=== PATIENT | male | born 1985 | race Caucasian/White ===

== ENCOUNTER 2020-02-22 00:45 | Emergency (ER) | payer SELFPAY ==
[2020-02-22] MEDS ORDERED: CHLORPROMAZINE HCL INJ 25 MG/1 ML AMPULE IM ONE (01:05)
--- NOTE | 2020-02-22 01:10 | ER Document Report ---
ED General - General TRAVEL OUTSIDE OF THE [place] IN LAST 30 DAYS: No <TIA AGUILAR - Last Filed: 02/22/20 02:22> <KIMBERLY NEVES - Last Filed: 02/22/20 10:49> <CELSOELLIOTT A - Last Filed: 02/22/20 12:52> - General Chief Complaint: Psych Problem Stated Complaint: ED IVC Time Seen by Provider: 02/22/20 00:56 Primary Care Provider: [facility] [Outside] - Follow up as needed - HPI Notes: Patient is a 35-year-old male who presents to the emergency department for evaluation. He admits to using methamphetamines. He states that he has similar over the head and he believes that he killed him. He also reported to nursing that there were rumors being posted about him on the Internet. As a result of these things he states he is suicidal. He cannot really focus enough to tell me what his plan is. He becomes very agitated. He denies any pain. He is otherwise rambling on about using meth and how upset he is, will not really further answer any of my questions. (TIA AGUILAR) - Related Data Allergies/Adverse Reactions: No Known Allergies Allergy (Verified 07/04/14 02:36) Past Medical History - General Information source: Patient - Social History Smoking Status: Unknown if Ever Smoked Frequency of alcohol use: unk Drug Abuse: Methamphetamine Family History: CAD, DM, Hypertension, Malignancy Patient has homicidal ideation: No Psychiatric Medical History: Reports: Hx Schizophrenia - Immunizations Immunizations up to date: Yes Hx Diphtheria, Pertussis, Tetanus Vaccination: Yes <TIA AGUILAR - Last Filed: 02/22/20 02:22> Review of Systems - Review of Systems -: Yes ROS unobtainable due to patient's medical condition <TIA AGUILAR - Last Filed: 02/22/20 02:22> Physical Exam <TIA AGUILAR - Last Filed: 02/22/20 02:22> - Vital signs Vitals: Pulse BP Pulse Ox 95 148/80 H 77 L 02/22/20 00:53 02/22/20 00:53 02/22/20 00:53 - Notes Notes: This is an agitated 35-year-old male who appears his stated age, in a moderate amount of distress. He is yelling intermittently. He appears paranoid, agitated, cannot maintain eye contact, and his moods are very labile. His findings are all consistent with methamphetamine intoxication. Vital signs reviewed, please refer to chart. Head is normocephalic, atraumatic. Pupils equal round, reactive to light. Neck is supple without meningismus. Heart is regular rate and rhythm. Lungs are clear to auscultation bilaterally. Abdomen is soft, nontender, normoactive bowel sounds throughout. Extremities without cyanosis, clubbing. Posterior calves are nontender. Peripheral pulses are equal. Skin is warm and dry. Patient is awake, alert, only intermittently cooperative with examiner. He has no gross facial asymmetry. He moves all 4 extremities spontaneously. (TIA AGUILAR) Course - Laboratory Results Result Diagrams: 02/22/20 01:52 02/22/20 01:52 - Radiology Results Critical Radiology Results Reviewed: No Critical Results <TIA AGUILAR - Last Filed: 02/22/20 02:22> - Laboratory Results Result Diagrams: 02/22/20 01:52 02/22/20 09:49 <KIMBERLY NEVES - Last Filed: 02/22/20 10:49> - Laboratory Results Result Diagrams: 02/22/20 01:52 02/22/20 09:49 Critical Laboratory Results Reviewed: No Critical Results - Radiology Results Critical Radiology Results Reviewed: No Critical Results <ELLIOTT HOUSTON - Last Filed: 02/22/20 12:52> - Re-evaluation Re-evalutation: 02/22/20 01:09 Patient presents emergency department for evaluation. He admitted openly to abusing methamphetamines as well as being suicidal. Based on this information I did fill out IVC paperwork. Laboratory investigations are ordered. Because of his level of agitation I did order Thorazine. The patient is currently stable, we will continue to monitor. 02/22/20 02:01 Patient is finally stable enough for blood draw and EKG. His EKG showed a sinus tachycardia with a rate of 107 and a prolonged QT interval. There are no old studies available for comparison. It is possible that the Thorazine is responsible for his prolonged QT, but will place him on telemetry. Magnesium is added to his regular electrolytes. I do not have any reason to strongly suspect any other significant abnormalities, and projected that he will likely be medically cleared for psychosocial evaluation in the morning. Care of this patient will be turned over to another provider and they will follow up in regards to any electrolyte replacement or further treatment that needs performed. Repeat EKG will be performed to determine whether or not this prolonged QT interval resolves after the administration of the antipsychotic has time to wear off. 02/22/20 02:23 Patient found to be markedly hypokalemic. Oral potassium replacement ordered now and as well as in several hours. I am still awaiting magnesium. I have placed an order for repeat potassium tomorrow morning. Report will also be given that an EKG should be repeated as well. Assuming appropriate replacement of the potassium on recheck and unremarkable magnesium, improvement in QT interval on EKG, patient will be medically cleared. (TIA AGUILAR) - Vital Signs Vital signs: Temp Pulse Resp BP Pulse Ox 97.7 F 111 H 16 131/83 H 94 02/22/20 09:56 02/22/20 09:56 02/22/20 09:56 02/22/20 09:56 02/22/20 09:56 - Laboratory Results Laboratory Results Interpreted: 02/22/20 02/22/20 02/22/20 01:52 01:52 09:49 MCHC 36.1 H Sodium 136.5 L 135.9 L Potassium 2.8 L* Glucose 121 H Total Bilirubin 1.6 H Total Protein 8.3 H Salicylates < 1.0 L Acetaminophen < 10 L - EKG Interpretation by Me Additional EKG results interpreted by me: 02/22/20 02:02 Sinus tachycardia with a rate of 107 bpm. Right axis deviation. IVCD. No acute ST changes concerning for ischemia or infarction. Prolonged QT interval. No studies available for comparison. (TIA AGUILAR) Discharge <TIA AGUILAR - Last Filed: 02/22/20 02:22> <KIMBERLY NEVES - Last Filed: 02/22/20 10:49> <ELLIOTT HOUSTON - Last Filed: 02/22/20 12:52> - Discharge Clinical Impression: Methamphetamine abuse, Suicidal ideation, Hypokalemia Condition: Stable Disposition: HOME, SELF-CARE Additional Instructions: You have been evaluated both medical and behavioral teams have been deemed appropriate for discharge. You are encouraged to refrain from using methamphetamines as this causes your symptoms of hallucinations, delusions and paranoia. You are encouraged to follow-up with substance use treatment. [facility] can assist you with voluntary detox. You have been provided a local resource list of area providers including [facility], other detox facilities and mobile crisis contact information. DEPRESSION: Your evaluation reveals that you have mental depression. While symptoms may be vague, they often include disturbance of sleep, fatigue, loss of appetite, and general loss of interest in life. While depression may be a side effect of drugs, or a reaction to a major change in your life, many cases have no known cause. If depression is acute, and related to a major loss in your life, you can expect it to clear completely with time. If you have been depressed a long time, are prone to repeated bouts of depression or low mood, or have been thinking of suicide, get help. Depression can be treated with anti-depressant medication and counselling. Long-term depression will often take a few weeks to clear, even with appropriate medication. Follow-up care is important. SUICIDAL IDEATION: Suicidal ideation is a common medical term for thoughts about suicide, which may be as detailed as a formulated plan, without the suicidal act itself. Although most people who undergo suicidal ideation do not commit suicide, some go on to make suicide attempts. The range of suicidal ideation varies greatly from fleeting to detailed planning, role playing, and unsuccessful attempts. While thoughts about suicide are common, most people do not carry out serious actions to commit suicide. Based upon your evaluation and discussion with you, we do not believe you are currently at risk to act upon your thoughts of suicide. You have agreed to return to the Emergency Department, at any time, if you feel inclined to act upon your suicidal thoughts. AMPHETAMINE / METHAMPHETAMINE ABUSE: Amphetamines are addicting stimulants. Amphetamines overstimulate the nervous system and give a false feeling of power and mastery. These drugs may be obtained as prescription pills for weight loss, narcolepsy, or attention-deficit disorder. More often they're bought as an illegal street drug, methamphetamine (crank, crystal, speed). Using amphetamines repeatedly can lead to serious medical problems including malnutrition, severe depression, and paranoia. It can take increasing amounts to feel good. Eventually, there will be a "burn out." When you go off amphetamines there is a period of depression that may last for weeks or even months. High doses of amphetamines can cause seizures, confusion, hallucinations, delusions, high blood pressure, muscle damage, heart damage, or sudden . Many times these deadly complications occur even with "normal" doses. Injection of amphetamines is risky for developing abscesses, endocarditis (heart infection), pneumonia, and AIDS. Withdrawal from amphetamines often causes anxiety, depression, and drug cravings. Some users become paranoid and psychotic. There may be cramps, nausea, and vomiting. Many treatment programs are available, but you must make the decision to quit. Medication can be prescribed to control the symptoms of amphetamine toxicity (beta blockers or benzodiazepines). Withdrawal symptoms may require tranquilizers. FOLLOW-UP CARE: If you have been referred to a physician for follow-up care, call the physicians office for an appointment as you were instructed or within the next two days. If you experience worsening or a significant change in your symptoms, notify the physician immediately or return to the Emergency Department at any time for re-evaluation. Referrals: [facility] [Outside] - Follow up as needed IVET HAMILTON MD [COMMUNITY BASED STAFF] - Follow up as needed
[2020-02-22 02:01] LABS: ABSOLUTE BASOPHILS # (AUTO) 0.1 10^3/uL (0.0-0.2); ABSOLUTE EOSINOPHILS # (AUTO) 0.3 10^3/uL (0.0-0.6); ABSOLUTE LYMPHOCYTES (AUTO) 2.3 10^3/uL (0.5-4.7); ABSOLUTE MONOCYTES (AUTO) 0.7 10^3/uL (0.1-1.4); ABSOLUTE NEUT (AUTO) 5.3 10^3/uL (1.7-8.2); BASOPHILS % (AUTO) 1.3 % (0-2); EOSINOPHILS % (AUTO) 2.9 % (0-6); HEMATOCRIT 42.8 % (37.9-51.0); HEMOGLOBIN 15.4 g/dL (13.5-17.0); LYMPHOCYTES % (AUTO) 26.6 % (13-45); MEAN CORPUSCULAR HEMOGLOBIN 31.2 pg (27.0-33.4); MEAN CORPUSCULAR HGB CONC 36.1 g/dL (32.0-36.0); MEAN CORPUSCULAR VOLUME 87 fl (80-97); PLATELET COUNT 183 10^3/uL (150-450); RED BLOOD COUNT 4.94 10^6/uL (4.35-5.55); RED CELL DISTRIBUTION WIDTH 13.1 % (11.5-14.0); SEGMENTED NEUTROPHILS % (AUTO) 61.2 % (42-78); TOTAL CELLS COUNTED % (AUTO) 100 %; WHITE BLOOD COUNT 8.7 10^3/uL (4.0-10.5)
[2020-02-22 02:14] LABS: ALBUMIN 4.8 g/dL (3.5-5.0); ALKALINE PHOSPHATASE 92 U/L (38-126); ANION GAP 15 (5-19); ASPARTATE AMINO TRANSFERASE 53 U/L (17-59); BILIRUBIN,DIRECT 0.3 mg/dL (0.0-0.4); BILIRUBIN,TOTAL 1.6 mg/dL (0.2-1.3); BLOOD UREA NITROGEN 18 mg/dL (7-20); CALCIUM 9.5 mg/dL (8.4-10.2); CARBON DIOXIDE 23 mmol/L (22-30); CHLORIDE 99 mmol/L (98-107); GLUCOSE 121 mg/dL (75-110); TOTAL PROTEIN 8.3 g/dL (6.3-8.2)
[2020-02-22 02:17] LABS: ACETAMINOPHEN < 10 ug/mL (10-30); ALCOHOL < 10 mg/dL (NONE DETECTED); SALICYLATE < 1.0 mg/dL (2.0-20.0)
[2020-02-22 02:19] LABS: POTASSIUM 2.8 mmol/L (3.6-5.0)
[2020-02-22] MEDS ORDERED: POTASSIUM CHLORIDE 10 MEQ TABLET.ER PO ONE ×2 (02:20→06:00)
[2020-02-22 10:33] LABS: ANION GAP 9 (5-19); BLOOD UREA NITROGEN 17 mg/dL (7-20); CALCIUM 9.2 mg/dL (8.4-10.2); CARBON DIOXIDE 24 mmol/L (22-30); CHLORIDE 103 mmol/L (98-107); GLUCOSE 91 mg/dL (75-110)
[2020-02-22 10:39] LABS: POTASSIUM 4.7 mmol/L (3.6-5.0)
--- NOTE | 2020-02-22 11:35 | EKG REPORT ---
SEVERITY:- ABNORMAL ECG - SINUS TACHYCARDIA IRBBB AND LPFB PROLONGED QT INTERVAL : Confirmed by: Georgiana Palomo MD 22-Feb-2020 11:35:30
--- NOTE | 2020-02-22 11:39 | PSYCHOLOGICAL NOTE ---
Psych Note - Psych Note Date seen by psych provider: 02/22/20 Time seen by psych provider: 10:25 Psych Note: Reason for Consult:Substance Intoxication with psychosis Consent Permissions: none provided Patient arrived to [facility] ED via EMS due to psychosis. Patient admits to methamphetamine use and reports that he is "schizophrenic when he smokes methamphetamine." Patient continue report that last night he was very overwhelmed and scared and wanted to . Patient denies having a plan or wanting to kill himself currently. Clinician was able to reassure patient he is not schizophrenic if symptoms only occur when using methamphetamines. Clinician provided psychoeducation on methamphetamine use/symptoms. Patient reports he would like assistance with detox. Patient is alert and orientated to person, place, time and circumstance. Mood is dysphoric with tearful affect. Patient denies thoughts of wanting to harm himself however reports significant fear last night and passive suicidal ideation (i.e. no plans means or intent). Patient denies homicidal ideation. Delusions are absent behaviors congruent with intact reality based presentation i.e. organized linear thought process. Eye contact is fair. Conversational speech is within normal rate, tone and prosody. Intellectual abilities appear to be within the average range. Insight, judgment, impulse control is fair. Clinical Presentation: Methamphetamine intoxication with psychosis Passive suicidal ideation ie no plans means or intent IVC Criteria per [place] GS 122C Dangerous to others Within the relevant past the individual No has inflicted or attempted to inflict or threatened to inflict serious bodily harm on another AND No that there is a reasonable probability that this conduct will be repeated as there is an absence of supervision or structure to prevent. OR No has acted in such a way as to create a substantial risk of serious bodily harm to another AND No that there is a reasonable probability that this conduct will be repeated as there is an absence of supervision or structure to prevent. OR No has engaged in extreme destruction of property AND NO that there is a reasonable probability that this conduct will be repeated as there is an absence of supervision or structure to prevent. Previous episodes of dangerousness to others, when applicable, may be considered when determining reasonable probability of future dangerous conduct. Clear, cogent, and convincing evidence that an individual has committed a homicide in the relevant past is prima facie evidence of dangerousness to others. Dangerous to self Within the relevant past the individual has done any of the following: acted in such a way as to show ALL of the following: No The individual would be unable without care, supervision, and the continued assistance of others not otherwise available, to exercise self- control, judgment, and discretion in the conduct of the individual's daily responsibilities and social relations or to satisfy the individual's need for nourishment, personal or medical care, snf, or self-protection and safety. AND No There is a reasonable probability of the individual suffering serious physical debilitation within the near future unless adequate treatment is given. A showing of behavior that is grossly irrational, of actions that the individual is unable to control, of behavior that is grossly inappropriate to the situation, or of other evidence of severely impaired insight and judgment shall create a prima facie inference that the individual is unable to care for himself or herself. Clinician notes patient arrived under the influence of methamphetamines. Patient is no longer intoxicated and is able to care for ADLs. OR yes has attempted suicide or threatened suicide AND No that there is a reasonable probability of suicide unless adequate treatment is given as there is an absence of supervision or structure to prevent suicide of patient who has made an attempt, serious gesture or threat. Patient reports thoughts of passive suicidal ideation (i.e. no plans means or intent) while under the influence of methamphetamine. Patient denies current thoughts of wanting to harm himself OR No has mutilated himself or herself or attempted to mutilate himself or herself AND No that there is a reasonable probability of serious self-mutilation unless adequate treatment is given as there is an absence of supervision or structure to prevent. NOTE: Previous episodes of dangerousness to self, when applicable, may be considered when determining reasonable probability of physical debilitation, suicide, or self-mutilation. Impression\\plan: Patient is Recommended for rescind of 24 hour petition for evaluation and is cleared from acute psychiatric services; paperwork is signed and placed in patient's chart. Patient reports methamphetamine use and would like assistance with detox. He denies current thoughts of wanting to harm himself however admits that while intoxicated he had passive suicidal ideation i.e. no plans means or intent. Patient requests assistance with detox. Behavior health team contacted [facility] they confirm they have a voluntary bed. Patient provided contact information to call for set up a bed reservation for voluntary detox. Patient is also provided a local resource list with mobile crisis contact information. Dr. Chapman was consulted to care management of this patient; attending physician in agreement with recommendations and disposition.
--- NOTE | 2020-02-22 12:51 | ER Document Report ---
Doctor's Note Notes: 02/22/20 12:45 Patient's vital signs and previous labs, diagnostic images reviewed. Reviewed mental health notes, nurse's notes and previous providers notes. VSS. Pt is in no distress at this time. Denies any SI or HI. Potassium was rechecked at 8 and is up to 4.8. Repeat EKG shows a heart rate of 109, no ST segment elevations, no STEMI. Patient states he "used quite a bit of meth yesterday". Patient is getting resources to go to an outpatient clinic patient is going to [facility] voluntarily for placement. General: A&Ox3. Answers questions appropriately. Heart: RRR Lungs: CTAB Psych: Flat affect A/P: Continue monitoring and rec's per . Normal diet plan: [facility] for treatment 02/22/20 12:51
[2020-02-22 13:35] VITALS: BP 139/81
--- NOTE | 2020-02-23 20:33 | EKG REPORT ---
SEVERITY:- BORDERLINE ECG - SINUS TACHYCARDIA BORDERLINE PROLONGED QT INTERVAL : Confirmed by: eGorgiana Palomo MD 23-Feb-2020 20:32:46
== END 2020-02-22 13:10 | disposition home or self-care (01) ==
LOC: ER 00:45
DX: R45.851 Suicidal ideations (principal); F15.159 Other stimulant abuse with stimulant-induced psychotic disorder, unspecified; F15.129 Other stimulant abuse with intoxication, unspecified; E87.6 Hypokalemia; R00.0 Tachycardia, unspecified; R94.31 Abnormal electrocardiogram [ECG] [EKG]
CPT/HCPCS: 93005; 99285; 96372; 36415; 80307 ×3; 83735; 85025; 80053; 93010; J3230